=== PATIENT | male | born 1960 | race Caucasian/White ===

== ENCOUNTER 2017-07-15 04:19 | Inpatient (IN) | payer OTHER ==
[~2017-07-15] VITALS: Ht 177.8 cm; Wt 99.8 kg
[~2017-07-15 04:19] MED LIST: BACTRIM DS TAB1 EACH PO; COZAAR50 M1 PO; GLUCOPHAGE850 M2 PO; GLYXAMBI 10 MG1 EACH PO
[2017-07-15] MEDS ORDERED: METOPROLOL TART25 M1 PO (07:19)
--- NOTE | 2017-07-15 09:31 | Admission Core Measures ---
Acute Coronary Syndrome (CM) ACS Core Measures Acute Coronary Syndrome Diagnosis No Congestive Heart Failure (NEW) CHF Core Measures Congestive Heart Failure Diagnosis No Cerebrovascular Accident (NEW) CVA Core Measures CVA/TIA Diagnosis No Venous Thromboembolism VTE Core Yuriy (View Protocol) VTE Risk Factors Surgery No Mechanical VTE Prophylaxis d/t N/A MechProphylax Ordered No VTE Pharm Prophylaxis d/t NA PharmProphylax ordered Problem List As ranked by this Provider includes Assessment & Plan 1. Unilateral primary osteoarthritis, left hip HOME MEDS Home Med List Empagliflozin/Linagliptin (Glyxambi 10 MG-5 MG Tablet) 10 MG-5 MG TABLET 1 PO DAILY DIABETES (Reported) Losartan Potassium (Cozaar) 50 MG TABLET 1 TAB PO DAILY BP (Reported) Metformin HCl (Glucophage) 850 MG TABLET 1 TAB PO BID DIABETES (Reported) Metoprolol Tartrate 25 MG TABLET 1 TAB PO BID bp (Reported) Sulfamethoxazole/Trimethoprim (Bactrim Ds Tablet) 800 MG-160 MG TABLET 1 TAB PO BID UTI (Reported)
[2017-07-15] MEDS ORDERED: TOPROL XL25 M2 PO (09:47)
--- NOTE | 2017-07-15 09:52 | Surg Short-stay <48hrs Dis Sum ---
Visit Information Visit Dates Admission Date: 07/15/17 Discharge Date: 07/16/27 Surgical Short Stay DC Summary Admission Diagnosis: Primary osteoarthritis left hip Final Diagnosis: Same, status post left total hip arthroplasty Procedure(s): Left total hip arthroplasty Summary/Significant Findings: Patient was admitted to the hospital for an elective total left hip replacement. Procedure was tolerated well and patient was transferred to a general surgical floor. Diet was advanced and tolerated. Physical therapy performed evaluation and treatment. At time of hospital discharge, vital signs were stable, neurovascular status was intact, and pain was controlled with the use of oral pain medications. Condition at Discharge: Stable Discharge Disposition: home health services Discharge instructions provided to patient/family: Yes Post discharge follow-up plan: Follow up with Dr. Shrestha in 6 weeks from date of surgery. Please call his office to schedule/confirm this appointment.
[2017-07-15] MEDS ORDERED: ASPIRIN EC81 M1 PO (09:54)
[2017-07-15] MEDS ORDERED: MS CONTIN15 M3 PO (09:54)
[2017-07-15] MEDS ORDERED: COLACE100 M1 PO (09:54)
[2017-07-15] MEDS ORDERED: DILAUDID2 M1 PO (09:54)
[2017-07-15] MEDS ORDERED: PROTONIX20 M1 PO (09:54)
[2017-07-15] MEDS ORDERED: INDOMETHACIN25 M1 PO (09:54)
[2017-07-15] MEDS ORDERED: MIRALAX17 G1 PO (09:54)
--- NOTE | 2017-07-15 09:58 | Patient Discharge Instructions ---
Discharge Instructions General Discharge Information You were seen/treated for: Left hip pain related to osteoarthritis You had these procedures: Left total hip arthroplasty Watch for these problems: Worsening pain despite pain medications Inability to bear wear on operative leg Redness or drainage from incision Fever > 101 F Other wound care: Keep incision clean and dry. Dressing will be changed 48hr after surgery, then you may shower. Do not soak wound- no tub baths/swimming. Daily dry dressings recommended. Watch for signs of wound infection Special Instructions: Take Aspirin 81mg twice daily for 30 days. Take Miralax and Colace to prevent constipation. Take Indocin as prescribed for 10 days and Dilaudid as needed for pain control. Take Protonix for GI protection while taking high dose aspirin. Diet Continue normal diet: Yes Recommended Diet: Diabetic Activity Activity Self Limited: Yes Activity Limited to: Weight bear as tolerated Additional ACTIVITY Info: Use rolling walker as needed Acute Coronary Syndrome Inclusion Criteria At DC or during hospital stay patient has or had the following: ACS DIAGNOSIS No Discharge Core Measures Meds if any: Prescribed or Continued at Discharge Meds if any: NOT Prescribed or Continued at Discharge Congestive Heart Failure Inclusion Criteria At DC or during hospital stay patient has or had the following: CHF DIAGNOSIS No Discharge Core Measures Meds if any: Prescribed or Continued at Discharge Meds if any: NOT Prescribed or Continued at Discharge Cerebrovascular accident Inclusion Criteria At DC or during hospital stay patient has or had the following: CVA/TIA Diagnosis No Discharge Core Measures Meds if any: Prescribed or Continued at Discharge Meds if any: NOT Prescribed or Continued at Discharge Venous thromboembolism Inclusion Criteria VTE Diagnosis No VTE Type NONE VTE Confirmed by (Test) NONE Discharge Core Measures - Per Current guidelines, there needs to be overlap - treatment for the first 5 days of Warfarin therapy. - If discharged on Warfarin prior to 5 days of - overlap therapy, the patient will need to be - assessed for post discharge needs including - *Post discharge parental anticoagulation - *Warfarin and/or parental anticoagulation education - *Follow up date to check INR post discharge At least 5 days overlap therapy as Inpatient No Meds if any: Prescribed or Continued at Discharge Note: Overlap Therapy is Warfarin and Anticoagulant Meds if any: NOT Prescribed or Continued at Discharge
--- NOTE | 2017-07-15 12:07 | RADIOLOGY REPORT ---
EXAMINATION: XR HIP, LEFT CLINICAL INFORMATION: Arthroplasty COMPARISON: None TECHNIQUE: Two views of the left hip. FINDINGS: There is a left hip arthroplasty in place. This is not well demonstrated on the lateral view. There is apparent anatomic alignment. No complications are evident. IMPRESSION: Expected findings status post arthroplasty. Note that the femoral head is not visualized on the lateral projection.
[2017-07-15 12:40] VITALS: BP 110/58
--- NOTE | 2017-07-15 13:03 | PN- Orthopedic ---
Subjective Subjective: Patient reports no pain, numbness or tingling. Tolerating water without any nausea or vomiting. Denies voiding, has not ambulated with PT yet. Eager to go home later. Objective Vital Signs and I&Os Intake & Output 07/15 1600 07/15 0800 07/15 0000 07/14 1600 07/14 0800 07/14 0000 Intake Total Output Total Balance Patient 220 lb Weight Physical Exam: Vitals - afebrile, HR 84, BP 112/62, RR 20, O2 97% Gen - nad Cardiac - S1S2 noted, RRR Lungs - CTAB Ext - L hip dressing c/d/i, moves all extremities, compartment soft, motor an senosry intact, no edema or calf tenderness, alps in place Current Medications: Current Medications Sig/Robert Start time Last Medication Dose Route Stop Time Status Admin Acetaminophen 650 MG Q4P PRN 07/15 1245 AC PO Acetaminophen 0 .STK-MED ONE 07/15 0747 DC PO Acetaminophen 975 MG ONCE 07/15 0000 DC PO 07/15 2359 Aspirin 81 MG BID 07/15 2200 AC PO Cefazolin Sodium 2 GM IQ8 07/15 1600 AC N/A 1 UNIT IV 07/16 0029 Cefazolin Sodium 2,000 MG ONCE 07/15 0000 DC IV 07/15 2359 Dextrose/Sodium 1,000 ML .[id number] 07/15 1245 AC Chloride IV Docusate Sodium 100 MG BID 07/15 2200 AC PO Hydromorphone HCl 2 MG Q4P PRN 07/15 1245 AC PO Hydromorphone HCl 4 MG Q4P PRN 07/15 1245 AC PO Indomethacin Sodium 25 MG TID 07/15 1600 AC PO Insulin Aspart 0 TIDAC 07/15 1200 AC SC Losartan Potassium 50 MG DAILY 07/16 1000 AC PO Metoprolol Succinate 25 MG DAILY 07/15 1000 AC PO Morphine Sulfate 2 MG Q2P PRN 07/15 1245 AC IV Omeprazole 20 MG DAILY AC 07/16 0700 AC PO Ondansetron HCl 4 MG Q6P PRN 07/15 1245 AC IV Oxycodone HCl 0 .STK-MED ONE 07/15 0746 DC PO Oxycodone HCl 10 MG ONCE 07/15 0000 DC PO 07/15 2359 Polyethylene Glycol 17 GM DAILY 07/16 1000 AC PO Promethazine HCl 12.5 MG Q6P PRN 07/15 1245 AC IV 07/22 0944 Assessment/Plan Assessment/Plan 56 M POD 0 s/p L THR, recovernig well, awaiting postop void and PT eval PT eval, WBAT Ada diet, IVF Pain regimen, ice prn Indocin 25 mg po bid x 10 days Asa 81 bid, first dose tonight GI ppx on board ISS, fingersticks tidac/hs Bowel regimen on board Monitor postop void Encourage IS D/c meds/instructions explained in detail Anticipate d/c today w/ hhs pending PT clearance Core Measures Venous Thromboembolism VTE Risk Factors Surgery No Mechanical VTE Prophylaxis d/t N/A MechProphylax Ordered No VTE Pharm Prophylaxis d/t NA PharmProphylax ordered
[2017-07-15 14:21] VITALS: BP 112/62
--- NOTE | 2017-07-15 14:36 | Operative Report ---
Operative/Inv Procedure Report Surgery Date: 07/15/17 Name of Procedure: Left total hip replacement Pre-Operative Diagnosis: Primary left hip DJD Post-Operative Diagnosis: Same Estimated Blood Loss: 350 Surgeon/Director Of Regulatory Affairs: Fady DE LA ROSA,Basilio Robbins Anesthesia: block Operative/Procedure Note Note: Description of Procedure: The patient was taken to the operating room and positively identified. After induction of spinal anesthesia and administration of appropriate pre-operative antibiotics, the patient was positioned supine on the operating room table and all bony prominences were well padded. After performing a surgical timeout, the left lower extremity was prepped and draped in the usual sterile fashion. A direct anterior approach was made to the left hip. The incision was carried sharply through superficial soft tissues to the level of the fascia. Meticulous hemostasis was maintained with Bovie electocautery. The fascia over the tensor fascia pushpa muscle was opened sharply and the interval between the TFL and the sartorius was entered bluntly taking care to stay lateral to the lateral femoral cutaneous nerve. Retractors were placed around the femoral neck and the pericapsular fat was identified. The ascending branches of the lateral femoral circumflex vessels were identified and carefully coagulated. The pericapsular fat and anterior capsule were then resected. A napkin ring osteotomy was performed and the femoral head was removed without difficulty. Attention was then turned to the acetabulum. After appropriate placement of retractors, the acetabulum was exposed. Soft tissue was cleaned from the acetabular margin and notch. Overhanging osteophytes were removed and the teardrop was exposed. The acetabulum was then sequentially reamed to accept a 58 mm Orange Tritanium hemispherical solid shell. This was impacted into place in the appropriate position and fitted with a 36 mm Trident X3 zero degree eccentric polyethylene insert. Attention was then turned to the femur. After performing the appropriate ligament releases, the proximal femur was exposed. It was then sequentially broached to accept a size 7 Orange Accolade II stem. This was trialed for leg length and stability. The trial component was removed and the final component was impacted into place. The trunnion was carefully cleaned and fit with a 36 mm, -2.5 Biolox delta ceramic femoral head. The hip was reduced and put through a full range of motion and found to be stable. The articular space was then irrigated with sterile saline. The periarticular soft tissues were infilitrated with Marcaine. The fascial layer was closed with interrupted #1 vicryl suture and the skin was re-approximated with interrupted 2 -0 vicryl. The skin was closed with a running 3-0 V-Lock suture. Steri-strips and a sterile dressing were applied. The patient was awakened and taken to the recovery room in satisfactory condition.
[2017-07-15 16:12] VITALS: BP 130/56
== END 2017-07-15 16:51 | disposition home health service (06) | DRG 470 ==
LOC: SDA 04:19 → ENRESERV 12:11 → ENTRNSPT 12:19 → EDTRNSPT 12:26 → CMPTRNSPT 12:26 → EDTRNSPTSTS 12:26 → 2NA 12:32 → CMPTRNSPT 12:44 → ENPENDDIS 14:25 → ENTRNSPT 16:41 → EDTRNSPTSTS 16:47 → EDTRNSPT 16:47 → 2NA 16:51 → CMPTRNSPT 16:56
PROC: 0SRB04A Replacement of Left Hip Joint with Ceramic on Polyethylene Synthetic Substitute, Uncemented, Open Approach (ICD-10-PCS; principal; 2017-07-15)
DX: M16.12 Unilateral primary osteoarthritis, left hip (principal); E11.9 Type 2 diabetes mellitus without complications; I10 Essential (primary) hypertension; Z96.652 Presence of left artificial knee joint; F17.200 Nicotine dependence, unspecified, uncomplicated; Z79.84 Long term (current) use of oral hypoglycemic drugs
CPT/HCPCS: 2NAP; 73502-LT; 97116-GO; 97161-GP; J0690; J0735; J1100; J2405; J2550; J3490; J7042